=== PATIENT | male | born 1965 | race Asian ===

== ENCOUNTER 2021-06-15 06:54 | Day surgery (SDC) | payer MEDICAID, SELFPAY ==
[2021-06-15] MEDS ORDERED: fentaNYL CITRATE/PF 100 MCG/2 ML AMP ONE (07:36)
[2021-06-15] MEDS ORDERED: MIDAZOLAM HCL 5 MG/5 ML VIAL ONE (07:36)
[2021-06-15] MEDS ORDERED: SIMETHICONE 40 MG/0.6 ML ML ONE (07:36)
[2021-06-15 13:10] VITALS: BP_SYST 102
== END 2021-06-15 10:50 | disposition home or self-care (01) ==
LOC: SDS 06:54 → SMU 06:56 → SDS 10:50
PROVIDERS: ATTEND Internal Medicine
DX: Z12.11 Encounter for screening for malignant neoplasm of colon (principal); D12.3 Benign neoplasm of transverse colon; K64.8 Other hemorrhoids; R14.3 Flatulence; Z20.822 Contact with and (suspected) exposure to COVID-19; Z79.899 Other long term (current) drug therapy
CPT/HCPCS: 45380; 45385; 88305; 96365; 99152; G0378; J2250; J3010; U0003